=== PATIENT | female | born 1970 | race Caucasian/White ===

== ENCOUNTER 2023-09-25 22:50 | Emergency (ER) | payer OTHER ==
[~2023-09-25] VITALS: Ht 160 cm; Wt 59.0 kg
[~2023-09-25 22:50] MED LIST: CETI10TA71 PO; [UNRECOGNIZED DRUG - CODE] PO; [UNRECOGNIZED DRUG - REMARK]
[2023-09-25 22:54] VITALS: BP 118/80; PULSE 94; RESP 16; TEMP 98.6; O2SAT 98
[2023-09-25 22:58] VITALS: O2SAT 99
[2023-09-25] MEDS: NACL 0.9% 1,000 ML IV SCH (23:44)
[2023-09-25] MEDS: ONDANSETRON 4 MG/2 ML VIAL IVP ONE (23:45)
[2023-09-25] MEDS: DIPHENOXYLATE /ATROPINE 2.5 MG TAB PO ONE (23:48)
[2023-09-25 23:51] LABS: BASOPHILS % (AUTO) 0.3 % (0.0-2.0); EOSINOPHILS # (AUTO) 0.1 K/uL (0-0.4); EOSINOPHILS % (AUTO) 0.7 % (0.0-4.0); HEMATOCRIT 39.2 % (36-48); HEMOGLOBIN 13.2 g/dL (12.0-16.0); LYMPHOCYTES # (AUTO) 1.4 K/uL (2.5-16.5); LYMPHOCYTES % (AUTO) 10.7 % (20.5-51.1); MEAN CORPUSCULAR HEMOGLOBIN 29 pg (27-31); MEAN CORPUSCULAR HGB CONC 34 g/dL (33-37); MEAN CORPUSCULAR VOLUME 85.3 fL (80-94); MONOCYTES # (AUTO) 1.5 K/uL (0.8-1.0); MONOCYTES % (AUTO) 11.9 % (1.7-9.3); NEUTROPHILS # (AUTO) 9.6 K/uL (1.8-7.7); NEUTROPHILS % (AUTO) 76.4 % (42.2-75.2); PLATELET COUNT (AUTO) 258 K/uL (140-450); RED CELL DISTRIBUTION WIDTH 13.2 % (11.6-13.7); WHITE BLOOD COUNT (AUTO) 12.6 K/uL (4.8-10.8)
[2023-09-26 00:02] LABS: APPEARANCE,URINE SLIGHTLY CLOUDY (CLEAR); BILIRUBIN,URINE NEGATIVE (NEGATIVE); BLOOD, URINE TRACE-I (NEGATIVE); COLOR,URINE YELLOW (YELLOW); LEUKOCYTE ESTERASE ,URINE NEGATIVE (NEGATIVE); NITRITE, URINE NEGATIVE (NEGATIVE); PH,URINE 5.5 (5.0-9.0); PROTEIN,URINE 2+ (NEGATIVE); UGLUCOSE 3+ (NEGATIVE); UROBILINOGEN,URINE 0.2 EU/dL (0.2 - 1)
[2023-09-26 00:06] LABS: BACTERIA,URINE 1+ /HPF (None Seen); MUCUS,URINE None Seen /LPF (None Seen); RBC,URINE 0-5 /HPF (0-5); SQUAMOUS EPITHELIAL CELL,UR 0-3 (FEW) /LPF (0-3 (FEW)); WBC,URINE 0-5 /HPF (0-5)
[2023-09-26 00:15] LABS: ALBUMIN 3.9 g/dL (3.4-5.0); BILIRUBIN,DIRECT 0.1 mg/dL (0.0-0.3); CALCIUM 9.5 mg/dL (8.5-10.1); CREATININE 0.8 mg/dL (0.6-1.3); TOTAL BILIRUBIN 0.3 mg/dL (0.0-1.0); TOTAL PROTEIN, SERUM 7.8 g/dL (6.4-8.2)
[2023-09-26] MEDS ORDERED: INSULIN REGULAR, HUMAN 100 UNIT/ML VIAL SUBQ ONE (00:55)
[2023-09-26] MEDS: NACL 0.9% 1,000 ML IV ONE (01:01)
[2023-09-26] MEDS: INSULIN REGULAR, HUMAN 100 UNIT/ML VIAL IVP ONE (01:27)
[2023-09-26] MEDS ORDERED: LOPE-143 PO (02:38)
[2023-09-26] MEDS ORDERED: ONDA-188 PO (02:38)
[2023-09-26 02:47] VITALS: BP 137/76; PULSE 90; RESP 18; TEMP 98.1; O2SAT 98
== END 2023-09-26 02:47 | disposition home or self-care (01) ==
LOC: MED 22:50
DX: E86.0 Dehydration (principal); E11.65 Type 2 diabetes mellitus with hyperglycemia; J45.909 Unspecified asthma, uncomplicated; I10 Essential (primary) hypertension; E78.00 Pure hypercholesterolemia, unspecified; Z79.1 Long term (current) use of non-steroidal anti-inflammatories (NSAID); Z79.4 Long term (current) use of insulin; Z79.899 Other long term (current) drug therapy; Z90.49 Acquired absence of other specified parts of digestive tract; Z98.890 Other specified postprocedural states
CPT/HCPCS: 36415; 80048; 80076; 81001; 81025; 82948; 83690; 85025; 96361; 96374; 96375; 99284; J1815; J2405; J7030

== ENCOUNTER 2023-10-27 08:16 | Emergency (ER) | payer OTHER ==
[~2023-10-27] VITALS: Ht 156.2 cm; Wt 60.8 kg
[~2023-10-27 08:16] MED LIST changes: +LOPE-143 PO; +ONDA-188 PO
[2023-10-27 08:33] VITALS: BP 119/76; PULSE 75; RESP 16; TEMP 98.4; O2SAT 10
== END 2023-10-27 10:37 | disposition home or self-care (01) ==
LOC: MED 08:16
DX: H54.62 Unqualified visual loss, left eye, normal vision right eye (principal); E11.9 Type 2 diabetes mellitus without complications; J45.909 Unspecified asthma, uncomplicated; I10 Essential (primary) hypertension; Z79.899 Other long term (current) drug therapy
CPT/HCPCS: 99281